=== PATIENT | female | born 1970 | race Hispanic/Latino ===

== ENCOUNTER 2017-09-15 13:10 | Outpatient (CLI) | payer BC ==
--- NOTE | 2017-09-15 15:50 | ULT ---
SOFT TISSUE ULTRASOUND OF THE LEFT FORELE09/15/17 INDICATION: Pain within the left calf. TECHNIQUE: Rose scale, color doppler and vascular duplex with spectral analysis was performed of the foreleg sof t tissues as well as the foreleg vasculature. There is report of pain in the left calf ongoing for on e month. FINDINGS: Soft tissue ultrasound in the region of pain demonstrates no suspicious abnormality. Underlying muscu lature of the left calf appear within normal limits. No definite hematoma or soft tissue mass is note d. Appropriate flow is seen within the left foreleg vasculature. IMPRESSION: No soft tissue mass or hematoma is seen within the region of pain in the left calf. POS: [facility]
== END 2017-09-15 13:11 | disposition home or self-care (01) ==
LOC: SCSULT 13:10
PROVIDERS: ATTEND Internal Medicine
DX: M79.662 Pain in left lower leg (principal)
CPT/HCPCS: 76999